=== PATIENT | male | born 1965 | race Caucasian/White ===

== ENCOUNTER 2018-06-09 12:28 | Outpatient (CLI) | payer BC ==
[~2018-06-09 12:28] MED LIST: Gadobenate Dimeglumine 529 MG/1 ML (20ML VIAL) ONE
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
== END 2018-06-09 12:29 | disposition home or self-care (01) ==
LOC: SCSMRI 12:28
PROVIDERS: ATTEND Family Medicine
DX: Z01.818 Encounter for other preprocedural examination (principal); M50.13 Cervical disc disorder with radiculopathy, cervicothoracic region; S13.4XXA Sprain of ligaments of cervical spine, initial encounter; M48.02 Spinal stenosis, cervical region; Z98.1 Arthrodesis status
CPT/HCPCS: 72156; A9577

== ENCOUNTER 2021-11-13 17:59 | Emergency (ER) | payer BC, OTHER ==
[2021-11-13] MEDS ORDERED: Acetaminophen 325 MG TAB ONE (18:53)
[2021-11-13] MEDS ORDERED: Acetaminophen 500 MG TAB ONE (18:53)
[2021-11-13] MEDS ORDERED: Ketorolac Tromethamine 30 MG/ML VIAL ONE (20:54)
== END 2021-11-13 21:06 | disposition home or self-care (01) ==
LOC: ERS 17:59
DX: M25.522 Pain in left elbow (principal); M54.50 Low back pain, unspecified; M54.2 Cervicalgia; E11.9 Type 2 diabetes mellitus without complications; I10 Essential (primary) hypertension; Z79.899 Other long term (current) drug therapy; Z79.84 Long term (current) use of oral hypoglycemic drugs; V89.2XXA Person injured in unspecified motor-vehicle accident, traffic, initial encounter
CPT/HCPCS: 72125; 72128; 72131; 96372; J1885